=== PATIENT | male | born 1965 | race Caucasian/White ===

== ENCOUNTER 2024-01-03 13:12 | Observation (INO) | payer OTHER, BC ==
[~2024-01-03] VITALS: Ht 185.4 cm; Wt 95.9 kg
[2024-01-03] MEDS ORDERED: LACTATED RINGER'S 1,000 ML IV ONE (14:00)
[2024-01-03] MEDS ORDERED: ondansetron HCL 4 MG/2 ML VIAL IV ONE (14:00)
[2024-01-03] MEDS ORDERED: fentaNYL citrate 100 MCG/2 ML VIAL IV ONE (14:00)
[2024-01-03 14:06] LABS: BASOPHILS 0.3 % (0-2); EOSINOPHILS 0.2 % (0-6); HEMATOCRIT 42.2 % (35.0-50.0); HEMOGLOBIN 14.3 g/dL (12.0-18.0); LYMPHOCYTES 17.5 % (24-44); MCH 30.4 (27-36); MCHC 33.9 g/dl (30-36); MCV 89.4 fl (81-99); MONOCYTES 3.9 % (0-12); NEUTROPHILS 78.1 % (39-80); PLATELET COUNT 154 K/uL (140-440); RBC 4.72 M/ul (4.3-5.7); RDW 14.1 (10.5-15.0)
[2024-01-03] MEDS ORDERED: TETANUS-DIPHTHERIA TOXOIDS/PF 0.5 ML VIAL IM ONE (14:15)
[2024-01-03 14:16] LABS: ALBUMIN 3.7 g/dL (3.4-5.0); ALBUMIN/GLOBULIN RATIO 1.06 (1.1-2.4); ANION GAP 11.8 (7-21); BILIRUBIN, TOTAL 0.6 ng/dL (0.2-1.0); BUN/CREATININE RATIO 17.07 (6.0-28.6); CALCIUM 8.4 mg/dL (8.5-10.1); CREATININE, SERUM 1.23 mg/dL (0.70-1.30); POTASSIUM 3.8 mmol/L (3.5-5.1); PROTEIN, TOTAL 7.2 g/dL (6.4-8.2)
[2024-01-03 14:54] LABS: ABO A; ANTIBODY SCREEN NEGATIVE; RH NEGATIVE
[2024-01-03 15:15] LABS: BILIRUBIN, URINE NEGATIVE (negative); BLOOD/HGB, URINE SMALL (Negative); KETONE, URINE NEGATIVE (Negative); LEUK ESTERASE, URINE NEGATIVE (negative); NITRITE, URINE NEGATIVE (negative); PH, URINE 6.5 (5-7)
[2024-01-03 15:25] LABS: BACTERIA, URINE NONE SEEN /hpf (negative); CASTS, URINE NONE SEEN \\lpf; CRYSTALS, URINE NONE SEEN (0-1+); EPITHELIAL CELLS, URINE SQUAMOUS 2+ /lpf (0-1+); WHITE BLOOD CELLS, URINE 0-1 /HPF (0-5)
[2024-01-03 15:26] LABS: COLLECTION TYPE, URINE CLEAN CATCH; REFLEX CULTURE, URINE No (No)
[2024-01-03] MEDS ORDERED: OXYCODONE HCL5 MG PO (16:12)
[2024-01-03] MEDS ORDERED: ONDANSETRON ODT8 MG PO (16:12)
[2024-01-03] MEDS ORDERED: KETOROLAC TROMETHAMINE 15 MG/ML VIAL IM ONE (17:15)
[2024-01-03] MEDS ORDERED: OXYCODONE/APAP 10/325 TAB PO ONE (17:15)
[2024-01-03] MEDS ORDERED: CYCLOBENZAPRINE HCL 10 MG TAB PO ONE (17:30)
[2024-01-03] MEDS ORDERED: KETOROLAC TROMETHAMINE 15 MG/ML VIAL IV ONE (18:15)
[2024-01-03] MEDS ORDERED: LIDOCAINE HCL 4% 1 EACH PATCH TD ONE (18:15)
[2024-01-03] MEDS ORDERED: ondansetron HCL 4 MG/2 ML VIAL IV PRN (20:00)
[2024-01-03] MEDS ORDERED: bisacodyL 10 MG SUPP PR PRN (20:00)
[2024-01-03] MEDS ORDERED: ACETAMINOPHEN 500 MG TAB PO PRN (20:00)
[2024-01-03] MEDS ORDERED: MAGNESIUM HYDROXIDE 30 ML UDC PO PRN (20:00)
[2024-01-03] MEDS ORDERED: OXYCODONE HCL 5 MG TAB PO PRN ×2 (20:15)
--- NOTE | 2024-01-03 20:35 | NUR ---
PATIENT ARRIVED TO MED/SURG UNIT VIA STRETCHER. PATIENT WAS ABLE TO TRANSFER SELF FROM STRETCHER TO BED WITH A WALKER AND I PERSON ASSIST. STAND PIVOT TRANSFER. REPORTS PAIN IS LOCATED MOSTLY IN RIGHT SIDE LOWER BACK AND RIGHT HIP. REPORTS PAIN AT TIMES CAN CONTINUE INTO RIGHT GROIN AREA WHEN HE IS BEARING WEIGHT OR CHANGING POSITIONS. LUNGS CTA, BOWEL TONES ACTIVE X 4 QUADRANTS. PAIN IS CONTROLED AT THIS TIME. PATIENT RESTING IN BED WITH CALL LIGHT IN REACH.
[2024-01-03 20:40] VITALS: BP 132/58
[2024-01-03] MEDS ORDERED: MELATONIN 3 MG TAB PO PRN (21:00)
[2024-01-03] MEDS ORDERED: CYCLOBENZAPRINE HCL 10 MG TAB PO PRN (21:00)
[2024-01-03] MEDS ORDERED: LIDOCAINE PATCH REMOVAL 1 EA TD SCH (21:00)
--- NOTE | 2024-01-03 22:30 | NUR ---
PATIENT RESTING IN BED LAYING ON LEFT SIDE WITH EYES CLOSED. RESPIRATIONS ARE EVEN AND UNLABORED. CALL LIGHT WITHIN REACH.
--- NOTE | 2024-01-04 00:10 | NUR ---
PATIENT RESTING IN BED WITH EYES CLOSED. RESPIRATIONS EVEN AND UNLABORED. CALL LIGHT WITHIN REACH.
[2024-01-04] MEDS ORDERED: IBUPROFEN 600 MG TAB PO SCH (02:00)
[2024-01-04 02:17] VITALS: BP 103/51
[2024-01-04 02:20] VITALS: BP 103/51
--- NOTE | 2024-01-04 02:27 | NUR ---
PATIENT AWAKE LAYING IN BED ON LEFT SIDE. USED URINAL, VOIDING QUANITY SUFRFICIENT. SCHEDULED 0200 MEDICATION GIVEN. VSS. NO FURTHER NEEDS AT THIS TIME. CALL LIGHT WITHIN REACH.
--- NOTE | 2024-01-04 04:12 | NUR ---
PATIENT RESTING IN BED WITH EYES CLOSED. LAYING ON BACK. RESPIRATIONS EVEN AND UNLABORED. CALL LIGHT WITHIN REACH.
[2024-01-04 05:54] VITALS: BP 118/66
[2024-01-04 06:05] VITALS: BP 118/66
--- NOTE | 2024-01-04 06:06 | NUR ---
PATIENT AWAKE IN BED. ICE PACK GIVEN AND PLACED ON LOWER BACK. C/O SHARP SHOOTING PAIN LOCALIZED IN RIGHT LOWER BACK WHEN ADJUSTING OR MOVING IN BED. REPORTS THAT WHEN HE LAYS STILL IN BED HIS PAIN IS LOW 2/. PRN GIVEN SEE OCT. VSS. NO FURTHER NEEDS AT THIS TIME. CALL LIGHT WITHIN REACH.
--- NOTE | 2024-01-04 07:58 | NUR ---
DID HRLY ROUNDING ON PT. REFILLED HIS WATER AND PT WANTED COFFEE,AND UPDATED BOARD. PT DIDNT NEED ANYTHING ELSE FROM ME AND CALL LIGHT IS WITHIN REACH.
[2024-01-04] MEDS ORDERED: KETOROLAC TROMETHAMINE 10 MG TAB PO SCH (08:00)
[2024-01-04 09:00] VITALS: BP 120/66
[2024-01-04] MEDS ORDERED: ENOXAPARIN SODIUM 40 MG/0.4 ML SYR SUB-Q SCH (09:00)
[2024-01-04] MEDS ORDERED: CYCLOBENZAPRINE10 MG PO ×2 (10:50→12:10)
[2024-01-04] MEDS ORDERED: KETOROLAC TROME10 MG PO ×2 (10:50→12:10)
[2024-01-04] MEDS ORDERED: DICLOFENAC SODI75 MG PO ×2 (10:50→12:10)
[2024-01-04] MEDS ORDERED: LIDOCAN III1 EACH TOP ×2 (10:55→12:10)
[2024-01-04] MEDS ORDERED: PHARMACY RENAL DOSE ADJUSTMENT 1 DOSE MISC PO SCH (12:00)
[2024-01-04] MEDS ORDERED: MIRALAX17 GM PO (12:10)
[2024-01-04] MEDS ORDERED: ONDANSETRON ODT8 MG PO (12:10)
[2024-01-04] MEDS ORDERED: OXYCODONE HCL5 MG PO (12:10)
--- NOTE | 2024-01-04 12:32 | NUR ---
Admin oxycodone 10mg po and tylenol 500mg po for reports of 7/10 back pain.
--- NOTE | 2024-01-04 19:08 | EKG ---
[facility] [address] [place], [place] [address] Signed Sinus bradycardia Otherwise normal ECG No previous ECGs available Confirmed by Maliha Ivory ([id number]) on 01/04/2024 7:07:47 PM Electronically Signed By: MALIHA IVORY MD 01/04/24 1908 PATIENT NAME: JOSEFINA FREY Electrocardiogram DATE OF : 65 PHYSICIAN: MALIHA IVORY MD REPORT #: [id number] REPORT IS CONFIDENTIAL AND NOT TO BE RELEASED WITHOUT AUTHORIZATION
== END 2024-01-04 12:30 | disposition home or self-care (01) ==
LOC: ED 13:12 → MS 13:14
PROVIDERS: Emergency Medicine; ADMIT Family Medicine; ATTEND Family Medicine
DX: S32.019A Unspecified fracture of first lumbar vertebra, initial encounter for closed fracture (principal); S32.029A Unspecified fracture of second lumbar vertebra, initial encounter for closed fracture; S32.039A Unspecified fracture of third lumbar vertebra, initial encounter for closed fracture; S32.049A Unspecified fracture of fourth lumbar vertebra, initial encounter for closed fracture; V80.010A Animal-rider injured by fall from or being thrown from horse in noncollision accident, initial encounter; Y93.52 Activity, horseback riding; R55 Syncope and collapse; Z79.899 Other long term (current) drug therapy; Z23 Encounter for immunization
CPT/HCPCS: 36415; 70450; 71260; 74177; 80053; 81001; 83605; 83690; 85025; 86850; 86900; 86901; 90714; 93005; 93010; 97161; A9270; J1650; J1885; J2405; J3010; J7121; Q9967